=== PATIENT | male | born 1955 | race Caucasian/White ===

== ENCOUNTER 2017-01-22 11:03 | Emergency (ER) | payer OTHER ==
[2017-01-22] MEDS ORDERED: Ketorolac Tromethamine 30 MG/ML VIAL ONE (11:51)
[2017-01-22 12:08] LABS: #Lymphocytes 0.5 thou/uL (1.20-3.40); #Monocytes 0.4 thou/uL (0.11-0.59); #Neutrophils 3.1 thou/uL (1.40-6.50); %Basophils 0.9 % (0.0-1.0); %Eosinophils 0.8 % (0.0-10.0); %Lymphocytes 12.9 % (21.0-51.0); %Monocytes 8.9 % (0.0-10.0); %Neutrophils 76.6 % (42.0-75.0); Hemoglobin 15.5 g/dL (14.0-18.0); Mean Corpuscular HGB CONC 33.2 g/dL (32.0-36.0); Mean Corpuscular Hemoglobin 29.6 pg (27.0-31.0); Mean Corpuscular Volume 89.2 fl (80.0-94.0); Mean Platelet Volume 8.8 fL (7.4-10.4); Platelet Count 124 thou/uL (130-400); RBC Distribution Width 11.5 % (11.5-14.5); Red Blood Cell (RBC) Count 5.24 mill/uL (4.70-6.10)
[2017-01-22 12:24] LABS: ALT (SGPT) 21 U/L (8-55); AST (SGOT) 27 U/L (5-34); Albumin 3.5 g/dL (3.5-5.0); Alkaline Phosphatase 61 U/L (40-150); Anion Gap 15 mmol/L (10-20); BUN (Urea Nitrogen) 11 mg/dL (8.4-25.7); Bilirubin, Total 0.8 mg/dL (0.2-1.2); Calc. Creatinine Clearance 0 mL/min (70-130); Calcium 8.4 mg/dL (7.8-10.44); Carbon Dioxide 20 mmol/L (22-29); Chloride 108 mmol/L (98-107); Estimated GFR-MDRD Greater than 90; Globulin 2.8 g/dL (2.4-3.5); Glucose 87 mg/dL (70-105); Potassium 4.1 mmol/L (3.5-5.1); Protein, Total 6.3 g/dL (6.0-8.3); Sodium 139 mmol/L (136-145)
[2017-01-22 12:26] LABS: Blood, Urine Trace (Negative); Clarity Clear (Clear); Glucose, Urine (Dipstick) Negative (Negative); Leukocyte Negative (Negative); Nitrite Negative (Negative); Protein, Urine (Dipstick) Negative (Neg-Trace)
[2017-01-22 12:36] LABS: Bilirubin Negative (Negative); Icto Negative (Negative)
[2017-01-22 12:37] LABS: Bacteria/HPF Rare-Few HPF (None Seen); Squamous Epithelial 0-3 HPF (0-3); WBC/HPF 0-3 HPF (0-3)
[2017-01-22] MEDS ORDERED: metroNIDAZOLE 500 MG TAB ONE (13:47)
[2017-01-22] MEDS ORDERED: Ciprofloxacin 500 MG TAB ONE (13:48)
[2017-01-22] MEDS ORDERED: Cipro 250 MG TAB ONE (13:49)
--- NOTE | 2017-01-22 14:12 | CT ---
CT ABDOMEN AND PELVIS NONCONTRAST: Date: 01/22/17 HISTORY: Left flank pain. FINDINGS: Each renal collecting system and ureter are decompressed without stone evident. Urinary bladder is a lso decompressed. Lack of contrast limits evaluation for other abnormalities. Hyperdense stone is present at the gallb ladder neck. Subtle stranding is present within the fat of the left lower quadrant surrounding the s igmoid colon where there is mild circumferential wall thickening. Extensive diverticula arise from t he colon. Minimal free fluid is present within the dependent portion of the pelvis. IMPRESSION: 1. No CT evidence of urinary tract obstruction or calcification. 2. Subtle inflammatory changes within the left lower pelvis, favored to arise from the sigmoid colo n. Noncomplicated sigmoid diverticulitis is favored. 3. Cholelithiasis. POS: [facility]
== END 2017-01-22 14:08 | disposition home or self-care (01) ==
LOC: NAV ERS 11:03
DX: K57.92 Diverticulitis of intestine, part unspecified, without perforation or abscess without bleeding (principal); R31.9 Hematuria, unspecified; I10 Essential (primary) hypertension; Z79.899 Other long term (current) drug therapy
CPT/HCPCS: 36415; 74176; 80053; 81003; 81015; 85025; 85652; 86140; 96374; J1885

== ENCOUNTER 2018-02-27 12:19 | Outpatient (CLI) | payer OTHER ==
--- NOTE | 2018-02-27 12:45 | RAD ---
LEFT FOOT 3 VIEWS: HISTORY: Left foot pain. The patient is aware of a piece of wire he tripped on 15 years ago. FINDINGS: No acute fracture, dislocation, or bone destruction is seen. A small plantar calcaneal spur is prese nt. There is a radiopaque wire measuring 1.8 cm in the soft tissue space between the 1st and the 2nd metatarsals. POS: [facility]
== END 2018-02-27 12:20 | disposition home or self-care (01) ==
LOC: NAV RAD 12:19
PROVIDERS: ATTEND Family Medicine
DX: M25.572 Pain in left ankle and joints of left foot (principal)